=== PATIENT | male | born 1990 | race Caucasian/White ===

== ENCOUNTER 2023-11-29 19:46 | Emergency (ER) | payer OTHER, SELFPAY ==
[2023-11-29 19:47] VITALS: BP 160/98; PULSE 97; RESP 18; TEMP 36.3; O2SAT 99; BMI 36.8
--- NOTE | 2023-11-29 20:00 | EKG12_ITS ---
Test Reason : CP Blood Pressure : / mmHG Vent. Rate : 084 BPM Atrial Rate : 084 BPM P-R Int : 168 ms QRS Dur : 082 ms QT Int : 344 ms P-R-T Axes : 053 -05 032 degrees QTc Int : 406 ms Normal sinus rhythm Minimal voltage criteria for LVH, may be normal variant ( R in aVL ) Borderline ECG Confirmed by PATI MARTINEZ, ISABEL ([id number]), newspaper photo editor WAYNE RIBEIRO ([id number]) on 11/30/2023 1:05:18 PM Referred By: Confirmed By:ISABEL KRUEGER MD
--- NOTE | 2023-11-29 20:01 | ED.VIS.CHEST ---
HPI History of Present Illness Chief Complaint: Chest Pain Informant: patient Onset/Context/Timing Onset: Days Narrative Narrative: Patient presents secondary to chest pain. He states for the past couple days he has had ongoing pain just to the left of his sternum. Last evening he was working on a truck lying on his stomach and he thought that is what caused it, however now that he is thought about it more he states the pain started previous to this. He does not feel short of breath. His father had a heart attack at the age of 40. Patient does have a history of hypertension and has been taking his meds. He states he tends to have whitecoat syndrome and his blood pressure is always elevated at the doctor's office. He took his blood pressure at home today and it was in the 130s systolic. [facility] Medical History Hypercholesteremia Hypertension Home Medications atorvastatin 20 mg tablet 20 mg PO DAILY 11/29/23 [History Last Taken Unknown] hydrochlorothiazide 12.5 mg tablet 12.5 mg PO DAILY 11/29/23 [History Last Taken Unknown] lisinopril 20 mg tablet 20 mg PO DAILY 11/29/23 [History Last Taken Unknown] omeprazole 20 mg capsule,delayed release 20 mg PO DAILY 11/29/23 [History Last Taken Unknown] Allergy/AdvReac Type Severity Reaction Status Date / Time Penicillins Allergy Mild Hives Verified 11/29/23 19:50 [facility] ED Constitutional Constitutional ED: Denies chills or fever(s) Eyes Eyes: Denies discharge from eye(s) ENT ENT ED: Denies discharge from eye(s), rhinorrhea or sore throat Cardiovascular Cardiovascular: Reports chest pain; Denies palpitations or racing heartbeat Respiratory/Chest Respiratory/Chest: Denies cough or dyspnea Gastrointestinal Gastrointestinal: Denies abdominal pain, nausea or vomiting Musculoskeletal Musculoskeletal: Denies back pain or extremity pain Integumentary Denies Abrasions or rash Neurologic Neurologic: Denies headache(s) or weakness Psychiatric Psychiatric: Denies anxiety or depression Allergic/Immunologic Allergic/Immunologic ED: Denies lip swelling or urticaria EXAM Physical Exam Const Vital Signs: 11/29/23 19:47 11/29/23 20:01 Temperature 97.4 F L Temperature Source Temporal Pulse Rate 97 Respiratory Rate 18 Respiratory Effort Non-Labored Blood Pressure 160/98 H Blood Pressure Mean 118 Pulse Ox 99 Oxygen Delivery Method Room Air Positive well nourished and well developed General Appearance ED: well developed HEENT Reports moist mucous membranes Eyes EOMs intact bilaterally Chest Wall inspection of chest normal and palpation of chest normal Resp normal respiratory effort and clear to auscultation bilaterally Cardio regular rate and regular rhythm GI soft to palpation and non-tender Extremity normal to inspection Neuro oriented x3 and no sensory deficits noted Motor Exam: strength 5/5 throughout Psych mental status grossly normal Skin no rashes or lesions noted MDM MDM MDM Narrative Medical decision making narrative: Patient was on admissions evaluator. EKG obtained to evaluate for cardiac arrhythmia/ischemia. IV line established. Labwork obtained to evaluate for leukocytosis, anemia, and electrolyte derangement. Chest x-ray obtained to evaluate for acute lung pathology, cardiac size, or mediastinal abnormality. Patient given aspirin while awaiting workup. History & Record Review Discussion w/independent historian: Patient and Family Lab Data Attestation: I reviewed the patient's lab results. Labs: Laboratory Results - last 24 hr 11/29/23 19:59 WBC 10.5 RBC 5.38 Hgb 15.3 Hct 44.6 MCV 82.9 MCH 28.4 MCHC 34.3 RDW Std Deviation 38.0 RDW Coeff of Usha 12.7 Plt Count 243 MPV 10.4 Immature Gran % (Auto) 0.500 Neut % (Auto) 58.8 Lymph % (Auto) 30.3 [place] % (Auto) 8.3 Eos % (Auto) 1.2 Baso % (Auto) 0.9 Absolute Neuts (auto) 6.2 Absolute Lymphs (auto) 3.19 Nucleated RBC % 0 Sodium 138 Potassium 3.7 Chloride 109 H Carbon Dioxide 24.0 Anion Gap 5 BUN 23 H Creatinine 0.89 Estim Creat Clear Calc 153.99 Est GFR (MDRD) Af Amer 126 Est GFR (MDRD) Non-Af 104 BUN/Creatinine Ratio 26.0 H Glucose 116 H Calcium 9.1 Troponin I High Sens 9 Radiography Chest X-Ray - ED: 1 View, Read by ED Physician, Normal, Heart, Lungs, Mediastinum and No Infiltrates Diagnostic Testing: Clinical Impression(s) from Imaging Studies Chest X-Ray 11/29/23 20:05 IMPRESSION: Normal x-ray examination of the chest. Electronically Signed: Vicky Che MD at 20:20 EST , EKG Initial EKG: Attestation: I personally reviewed and interpreted this EKG as follows: Interpretation: Sinus Rhythm (Sinus 84 with no acute ischemia.) Treatment and Re-Evaluation :: CBC was normal white count at 10.5 with a hemoglobin of 15.3. Normal differential. Chemistry studies unremarkable. Troponin is 9. EKG is sinus rhythm at 84 bpm with no evidence of acute ischemia. Portable chest x-ray per my interpretation reveals no acute abnormalities. Radiology interpretation reviewed and agrees. On repeat evaluation patient systolic blood pressure is currently 140. He is resting comfortably. Patient has had pain for the last couple of days with negative troponin. Given his family history I did recommend follow-up with his primary care physician for possible stress test. Return instructions were provided. They are comfortable with the plan. Discharge Plan Triage Chief Complaint: Chest Pain ED Provider: Rand Garcia Dx/Rx/DC Orders Clinical Impression: Chest pain Instructions: ED Chest Pain, Uncertain Cause Prescriptions: No Action lisinopril 20 mg tablet 20 mg PO DAILY omeprazole 20 mg capsule,delayed release(DR/EC) 20 mg PO DAILY atorvastatin 20 mg tablet 20 mg PO DAILY hydrochlorothiazide 12.5 mg tablet 12.5 mg PO DAILY Primary Care Provider: Tomas Hess Referrals: Tomas Hess MD [Primary Care Provider] - 5-7 Days
--- NOTE | 2023-11-29 20:05 | RAD_ITS ---
STUDY: X-RAY CHEST REASON FOR EXAM: Male, 33 years old. chest pain TECHNIQUE: Single AP portable view of the chest. COMPARISON: None. FINDINGS: The lungs are clear and expanded. There is no demonstrated pleural abnormality. Normal size heart. Normal mediastinum and can. Normal visualized pulmonary arteries. Normal visualized aortic arch and descending thoracic aorta. Normal visualized thoracic spine. Normal visualized ribs, clavicles, and shoulders. There is no demonstrated abnormality of the visualized soft tissue structures of the upper abdomen. RAD/Chest 1 View (Portable) IMPRESSION: Normal x-ray examination of the chest. Electronically Signed: Vicky Che MD at 20:[address] [facility] ,
[2023-11-29] MEDS: Aspirin 81 MG TAB.CHEW 324 MG PO (20:16)
[2023-11-29 20:21] LABS: Absolute Lymphocyte Count 3.19 X10^3/uL (0.83-4.51); Absolute Neutrophil Count 6.2 X10^3/uL (2.0-7.7); Basophil# 0.09 X10^3/uL; Basophil% 0.9 % (0-1); Eosinophil# 0.13 X10^3/uL; Eosinophils% 1.2 % (0-5); Hematocrit 44.6 % (40-54); Hemoglobin 15.3 g/dL (13.0-16.5); Lymphocyte # 3.19 X10^3/ul (0.83-4.51); Lymphocyte % 30.3 % (19-41); Mean Corp Hgb Conc 34.3 g/dL (32-36); Mean Corpuscular Hgb 28.4 pg (27.0-32.0); Mean Corpuscular Volume 82.9 fL (80-94); Mean Platelet Vol. 10.4 fl (6.2-12.0); Monocyte# 0.87 X10^3/uL; Monocyte% 8.3 % (0-10); NRBC Flagged by Analyzer 0 % (0-5); Neutrophil % 58.8 % (47-70); Platelet Count 243 K/mm3 (150-450); RBC Distribution Width CV 12.7 % (11.6-14.6); Red Blood Count 5.38 M/mm3 (4.6-6.2); White Blood Count 10.5 K/mm3 (4.4-11.0)
[2023-11-29 20:46] LABS: Anion Gap 5 (5-15); BUN 23 mg/dL (7-18); Calcium,Total 9.1 mg/dL (8.5-10.1); Chloride 109 mmol/L (98-107); Creatinine, Serum 0.89 mg/dL (0.70-1.30); EST Glomerular Filtration Rate 104 mL/min (>60); Est Glom Filt Rate - Afr Amer 126 mL/min (>60); Estimated Creatinine Clearance 153.99 ml/min; Glucose 116 mg/dL (74-106); Potassium 3.7 mmol/L (3.5-5.1); Sodium Level 138 mmol/L (136-145); Troponin-I HS (w/2H Reflex) 9 pg/mL (3.0-78.0)
[2023-11-29 21:02] VITALS: BP 141/85; PULSE 79; RESP 25; TEMP 36.8; O2SAT 98
[2023-11-29 22:15] LABS: Reflex Troponin-HS? (from REC) Y
== END 2023-11-29 21:06 | disposition home or self-care (01) ==
PROVIDERS: Emergency Provider Emergency Medicine; PCP Family Medicine; Visit Provider Emergency Medicine
DX: R07.9 Chest pain, unspecified (principal); I10 Essential (primary) hypertension; E78.00 Pure hypercholesterolemia, unspecified; Z79.899 Other long term (current) drug therapy
CPT/HCPCS: 71045; 80048; 84484; 85025; 93005; 99284; A4216